=== PATIENT | male | born 1955 | race Caucasian/White ===

== ENCOUNTER 2018-12-20 07:56 | Emergency (ER) | payer MEDICARE, OTHER ==
[~2018-12-20] VITALS: Ht 170.2 cm; Wt 72.6 kg
[~2018-12-20 07:56] MED LIST: ADVAIR INH; GABA-531 PO; LACTULOSE PO; LEVO50TA8 PO; MET10 PO; SPIRINOLACTONE; TERA5CAP4 PO
[2018-12-20 07:58] VITALS: BP_SYST 148
--- NOTE | 2018-12-20 07:58 | NUR ---
BROUGHT BACK TO BED #8 AND TRIAGED. REPORT GIVEN TO MOE
--- NOTE | 2018-12-20 08:00 | NUR ---
Pt presents to ED c/o abd cramping and vomiting > 10 times with black emesis.Pt h/o liver transplant x 6 yrs,hypertesion and hypothyroid.
--- NOTE | 2018-12-20 08:05 | NUR ---
ER at bedside examining patient.
[2018-12-20] MEDS ORDERED: NACL 0.9% 1,000 ML IV ONE (08:14)
[2018-12-20] MEDS ORDERED: FAMOTIDINE PF 20 MG/2 ML VIAL IVP ONE (08:15)
--- NOTE | 2018-12-20 08:15 | NUR ---
# 20 gauge angiocath placed to RAC. Use of asceptic technique. Opsite placed over site. Blood return noted. Blood for lab drawn from site. Flushed with 10 cc of normal saline. No evidence of infiltration noted. Patient tolerated well.
--- NOTE | 2018-12-20 08:48 | NUR ---
Patient transported to radiology via gurney, accompanied by rad staff.
[2018-12-20 08:50] LABS: CALCIUM 8.6 mg/dL (8.4-11.0); CREATININE 1.18 mg/dL (0.55-1.30); POTASSIUM 3.8 mmol/L (3.5-5.1)
[2018-12-20 08:52] LABS: BASOPHILS % (AUTO) 0.1 % (0.0-2.0); EOSINOPHILS % (AUTO) 0.6 % (0.0-4.0); HEMATOCRIT 40.7 % (36-54); HEMOGLOBIN 14.1 g/dL (14.0-18.0); LYMPHOCYTES # (AUTO) 0.6 K/uL (1.0-5.5); LYMPHOCYTES % (AUTO) 12.7 % (20.5-51.5); MEAN CORPUSCULAR HEMOGLOBIN 31 pg (27-31); MEAN CORPUSCULAR HGB CONC 35 % (32-36); MEAN CORPUSCULAR VOLUME 91 fL (79.0-98.0); MONOCYTES # (AUTO) 0.2 K/uL (0.0-1.0); MONOCYTES % (AUTO) 4.9 % (1.7-9.3); NEUTROPHILS # (AUTO) 4.1 K/uL (1.8-7.7); NEUTROPHILS % (AUTO) 81.7 % (40.0-70.0); PLATELET COUNT (AUTO) 103 K/uL (130-430); RED CELL DISTRIBUTION WIDTH 13.3 % (9.0-15.0)
--- NOTE | 2018-12-20 08:52 | NUR ---
Returned from radiology, back to [facility].
[2018-12-20 08:55] LABS: INR 0.9 (0.80-1.20); PROTHROMBIN TIME 9.4 SECS (9.5-12.5)
[2018-12-20 08:56] LABS: ALBUMIN 3.6 g/dL (3.4-4.8)
[2018-12-20 09:53] LABS: BILIRUBIN,URINE NEGATIVE (NEGATIVE); BLOOD, URINE NEGATIVE (NEGATIVE); CLARITY/URINE CLEAR (CLEAR); COLOR,URINE YELLOW (YELLOW); GLUCOSE,URINE NEGATIVE (NEGATIVE); KETONES,URINE NEGATIVE (NEGATIVE); LEUKOCYTE ESTERASE ,URINE NEGATIVE (NEGATIVE); NITRITE, URINE NEGATIVE (NEGATIVE); PROTEIN URINE 2+ (NEGATIVE); UROBILINOGEN,URINE 0.2 (0.2-1.0)
[2018-12-20 10:00] LABS: RBC,URINE 0-3 /HPF (0-3)
[2018-12-20] MEDS ORDERED: ONDANSETRON HCL 4 MG/2 ML VIAL IVP ONE (10:00)
[2018-12-20] MEDS ORDERED: MORPHINE 4 MG/ML INJ. SYRINGE IVP ONE (10:00)
[2018-12-20 10:01] LABS: BACTERIA,URINE FEW /HPF (None Seen); MUCUS,URINE None Seen /LPF (None Seen); WBC,URINE NONE SEEN /HPF (0-3)
[2018-12-20 10:50] VITALS: BP_SYST 140
--- NOTE | 2018-12-20 10:50 | NUR ---
Patient given written and verbal discharge instructions and verbalizes understanding. ER MD discussed with patient the results and treatment provided. Patient in stable condition. ID arm band removed. IV catheter removed intact and dressing applied, no active bleeding. Rx of methadone given. Patient educated on pain management and to follow up with PMD. Pain Scale 2. Opportunity for questions provided and answered. Medication side effect fact sheet provided.
== END 2018-12-20 10:50 | disposition home or self-care (01) ==
LOC: SED 07:56
DX: R10.84 Generalized abdominal pain (principal); R11.2 Nausea with vomiting, unspecified; R19.7 Diarrhea, unspecified; J45.909 Unspecified asthma, uncomplicated; I10 Essential (primary) hypertension; Z88.6 Allergy status to analgesic agent; Z88.8 Allergy status to other drugs, medicaments and biological substances; Z79.899 Other long term (current) drug therapy
CPT/HCPCS: 36415; 74176; 80053; 81000; 83605; 83690; 85025; 85610; 96361; 96374; 96375; 99284; J2270; J2405; J3490; J7030